=== PATIENT | female | born 1945 | race Caucasian/White ===

== ENCOUNTER → 2021-07-25 14:07 | Outpatient (BNVA) | payer MEDICARE, OTHER, SELFPAY | PROVIDERS: Family Provider Nurse Practitioner Family; PCP Nurse Practitioner Family; Referring Provider Nurse Practitioner Family; Visit Provider Specialist | DX: G89.29 Other chronic pain (principal); M25.511 Pain in right shoulder | CPT/HCPCS: 73030; 99203; 99204 ==

== ENCOUNTER → 2021-11-05 10:18 | Outpatient (BNVA) | payer MEDICARE, OTHER, SELFPAY | PROVIDERS: Family Provider Nurse Practitioner Family; PCP Nurse Practitioner Family; Visit Provider Internal Medicine Cardiovascular Disease | DX: R07.9 Chest pain, unspecified (principal); I71.4 Abdominal aortic aneurysm, without rupture; E78.5 Hyperlipidemia, unspecified; R06.09 Other forms of dyspnea; E03.9 Hypothyroidism, unspecified; F17.200 Nicotine dependence, unspecified, uncomplicated | CPT/HCPCS: 93005; 99204; 99205 ==

== ENCOUNTER 2021-12-26 06:24 | Outpatient (CLI) | payer MEDICARE, OTHER, SELFPAY ==
--- NOTE | 2021-12-26 | ECG_ITS ---
[facility] Test Date: 2021-12-26 Pat Name: Adrianne Najera Department: Room: Gender: Female Pbx Manager: : 1945 Requested By: Kyler Redman Order Number: [id number] Bianca MD: Kyler Redman M.D. Interpretive Statements NAME OF STUDY: LEXISCAN SESTAMIBI STRESS TEST INDICATION: Chest Pain; Shortness of Breath, PROCEDURE: At the baseline, the EKG revealed normal sinus rhythm with a poor R wave progression. Possible old septal WA. The baseline heart was 92 bpm with a blood pressue of 151/87 mm of Hg Lexiscan was infused over a period of 20 seconds. A total of 0.4 milligrams of Lexiscan was infused. The stress phase was continued for a total of 5 minutes. Heart rate at the end of the stress phase was 107 bpm with a blood pressure 133/69 mm of Hg. The EKG at the peak infusion revealed no significant changes. Sestamibi was injected 20 seconds after the Lexiscan infusion. Heart rate at the end of the recovery phase was 105 bpm with a blood pressure of 136/68 mm of Hg. CONCLUSION: 1. No significant EKG changes with the LexiScan infusion 2. No LexiScan induced chest pain or cardiac arrhythmia 3. Normal blood pressure and heart rate response 4. Sestamibi/sestamibi perfusion scan pending; see separate report. Electronically Signed On 12-30-2021 18:13:18 FLOOR FINISHER by Kyler Redman M.D. [id number]
--- NOTE | 2021-12-26 06:36 | NMCV_ITS ---
NM kathy perf SPECT r/s* [id number] Adrianne Najera Age: 76 Gender: F : 1945 Exam Date: 12/26/2021 08:01 Ordering Phys: Kyler Redman MD ([email or web address]) Technologist: TIMOTHY Huang Exam Location: [facility] Indications: CORONARY ANGIOPLASTY STATUS STRESS TEST Please see separate stress test report in [facility]any for full findings IMAGE PROTOCOL Rest/Stress 1 Lexiscan Day Radiopharmaceutical Dose (mCi) Administration Site Administered by Rest: Tc-99m 9.5 IV TIMOTHY Oleary Sestamibi Stress:Tc-99m 31.3 IV TIMOTHY Oleary Sestamibi Rest: 26-Dec-2021 60 Discovery 630 Stress: 26-Dec-2021 30 Discovery 630 0.4mg Lexiscan. Supine position only as patient was unable to lay prone. SPECT RESULTS Technical Quality: Excellent Raw Data Analysis: Normal Image Corrections: No attenuation or motion correction applied Summed Stress Score: 1 Summed Rest Score: 1 Summed Difference Score: 1 PERFUSION FINDINGS A very small area of slightly decreased tracer uptake was noted in the apical anterior and apical septal regions. No significant reversibility was noted in these regions. FUNCTIONAL RESULTS (calculated via Gated SPECT) Stress Image LV EF (%): 62 Stress EDV (mL):66 TID: 1.11 Stress ESV (mL):25 FUNCTIONAL FINDINGS: Segmental wall motion analysis revealing no gross wall motion abnormalities IMPRESSIONS 1. Myocardial perfusion imaging revealing very small areas of persistent decreased tracer uptake apical anterior and LV apex, suggesting myocardial scarring versus attenuation artifact. 2. Normal LV ejection fraction of 62%. 3. LV wall motion analysis revealing no gross wall motion abnormalities. 4. Normal LV volume Low probability for coronary ischemia, based on the above findings. No similar previous studies are available for comparison Dr Kyler Redman MD [facility] (Electronically Signed) Final Date: 26 December 2021 23:19 S
[2021-12-26 06:45] VITALS: BMI 21.9
[2021-12-26] MEDS: regadenoson 0.4 Mg/5 ml Syringe IVP (08:53)
[2021-12-26 09:42] VITALS: BP 136/68; PULSE 98
--- NOTE | 2021-12-26 13:30 | USCV_ITS ---
Adrianne Najera Age: 76 Gender: F : 1945 Exam Date: 12/26/2021 07:18 Ordering Phys: Kyler Redman MD ([email or web address]) Technologist: Alfonzo Luz [place] [facility] [place]: chest pain/ AAA BP: 116 / 64 HR: 87 Rhythm: Sinus Technical Quality: Adequate MEASUREMENTS (Male / Female) Normal Values 2D ECHO LV Diastolic Diameter PLAX 2.1 cm 4.2 - 5.9 / 3.9 - 5.3 cm LV Systolic Diameter PLAX 1.5 cm IVS Diastolic Thickness 0.8 cm 0.6 - 1.0 / 0.6 - 0.9 cm IVS Systolic Thickness 1.0 cm LVPW Diastolic Thickness 1.0 cm 0.6 - 1.0 / 0.6 - 0.9 cm LVPW Systolic Thickness 1.1 cm LVOT Diameter 2.0 cm LV Ejection Fraction 2D Teich 57.7 % LV Ejection Fraction MOD 2C 52.1 % LV Ejection Fraction 2C AL 53.0 % LA Diameter 3.2 cm LA Width 4.1 cm LA Height 2.9 cm RA Width 2.8 cm RA Height 2.9 cm Aorta at Sinotubular Diameter 1.9 cm IVC Diameter 1.3 cm M-MODE Aortic Annulus Diameter 2.7 cm LA Ao Ratio MM 1.2 MV E Point Septal Separation 0.6 cm DOPPLER AV Peak Velocity 109.7 cm/s LVOT Peak Velocity 81.0 cm/s AV Area Cont Eq vti 2.0 cm squared AV Area Cont Eq pk 2.3 cm squared MV Peak Velocity 100.0 cm/s MV Area PHT 5.0 cm squared Mitral E to A Ratio 0.7 MV E' Velocity 30.0 cm/s Mitral E to MV E' Ratio 6.3 Mitral E to LV E' Lateral Ratio 5.4 Mitral E to LV E' Septal Ratio 7.6 TR Peak Velocity 326.7 cm/s TR Peak Gradient 42.7 mmHg TR Mean Velocity 262.0 cm/s TR Mean Gradient 28.5 mmHg TR Velocity Time Integral 82.2 cm Right Atrial Pressure 3.0 mmHg Pulmonary Artery Systolic Pressu 45.7 mmHg PV Peak Velocity 94.0 cm/s RV Acceleration Time 0.1 s RV Ejection Time 0.2 s RV AcT/ET 0.6 FINDINGS Left Ventricle Normal left ventricular size with a borderline low ejection fraction of 52%. Mild diffuse hypokinesia of the anteroseptal segment. Right Ventricle The right ventricle is normal in size and function. Right Atrium The right atrium is normal in size. Left Atrium The left atrium is normal in size. Mitral Valve Thickened mitral valve. Aortic Valve Thickened aortic valve. Tricuspid Valve Mild tricuspid valve regurgitation. Estimated pulmonary artery peak systolic pressure of 46 mmHg Pulmonic Valve Pulmonic valve not well visualized. Pericardium No pericardial effusion. Aorta Normal ascending aorta dimension. IVC Normal inferior vena cava. CONCLUSIONS Normal left ventricular size with a borderline low ejection fraction of 52%. Mild diffuse hypokinesia of the anteroseptal segment. Thickened mitral valve. Thickened aortic valve. Mild tricuspid valve regurgitation. Estimated pulmonary artery peak systolic pressure of 46 mmHg There is no pericardial effusion. No similar previous studies are available for comparison Dr Kyler Redman MD [facility] (Electronically Signed) Final Date: 27 December 2021 17:02 S
== END 2021-12-26 06:25 | disposition home or self-care (01) ==
LOC: CDL 06:28
PROVIDERS: PCP Nurse Practitioner Family; Visit Provider Internal Medicine Cardiovascular Disease
DX: R07.9 Chest pain, unspecified (principal); I71.40 Abdominal aortic aneurysm, without rupture, unspecified; Z98.61 Coronary angioplasty status; I08.3 Combined rheumatic disorders of mitral, aortic and tricuspid valves
CPT/HCPCS: 36415; 78452; 93017; 93306; 96374; A9500; J2785

== ENCOUNTER 2022-01-07 09:38 | Outpatient (CLI) | payer MEDICARE, OTHER, SELFPAY ==
--- NOTE | 2022-01-07 10:00 | CT_ITS ---
WS: [id number] CTA ABDOMEN TECHNIQUE: Noncontrast plus contrast enhanced CTA of the abdominal aorta with coronal and sagittal re formatted images and additional MIP Images. CLINICAL INFORMATION: AAA COMPARISON: None. DLP: 512.[address] scans at [facility] use at least one of these dose optimization techniques: automated e xposure control; mA and/or kV adjustment per patient size (includes targeted exams where dose is matc hed to clinical indication); or iterative reconstruction. FINDINGS: Infrarenal abdominal aortic aneurysm with peripheral mural thrombus. Aneurysm measures approximately 3.8 x 4.3 x 4.4 cm AP by transverse by craniocaudal. Tortuous abdominal aorta. Celiac and SMA are pat ent. Proximal renal arteries are patent. Proximal common iliac arteries are patent with moderate calcification. Emphysematous changes in the l mima bases. Bibasilar atelectasis/fibrosis. Liver appears normal. Prior cholecystectomy. Normal GE mike ction. Adrenal glands are normal. Normal renal parenchymal enhancement. Necrosis. Normal spleen. Lumbar scoliosis. Mild chronic compression superior endplate L2. Mild spondylitic changes lumbar spin e. CT/CT angio abdomen [id number] IMPRESSION: 1. Infrarenal abdominal aortic aneurysm measuring 3.8 x 4.3 x 4.4 cm AP by tra nsverse by craniocaudal. 2. Prior cholecystectomy.
[2022-01-07 10:07] LABS: Blood Urea Nitrogen 13 mg/dL (8-23)
[2022-01-07] MEDS: iohexol 350 mg/mL 100 mL Btl IV (10:23)
== END 2022-01-07 09:39 | disposition home or self-care (01) ==
LOC: RAD 09:39
PROVIDERS: PCP Nurse Practitioner Family; Visit Provider Internal Medicine Cardiovascular Disease
DX: Z01.812 Encounter for preprocedural laboratory examination (principal); I71.43 Infrarenal abdominal aortic aneurysm, without rupture; Z90.49 Acquired absence of other specified parts of digestive tract
CPT/HCPCS: 74175; 82565; 84520; Q9967

== ENCOUNTER → 2022-04-16 09:26 | Outpatient (BNVA) | payer MEDICARE, OTHER, SELFPAY | PROVIDERS: PCP Nurse Practitioner Family; Visit Provider Internal Medicine Cardiovascular Disease | DX: I71.40 Abdominal aortic aneurysm, without rupture, unspecified (principal); R06.09 Other forms of dyspnea; E78.5 Hyperlipidemia, unspecified; R03.0 Elevated blood-pressure reading, without diagnosis of hypertension; Z87.898 Personal history of other specified conditions; F17.200 Nicotine dependence, unspecified, uncomplicated | CPT/HCPCS: 99215 ==

== ENCOUNTER 2022-07-09 10:35 | Outpatient (CLI) | payer MEDICARE, OTHER, SELFPAY ==
--- NOTE | 2022-07-09 11:15 | USCV_ITS ---
Adrianne Najera Age: 77 Gender: F : 1945 Exam Date: 07/09/2022 10:58 Ordering Phys: Kyler Redman MD ([email or web address]) Technologist: Horacio Rankin [place] [facility] [place]: aaa HISTORY: Diameter (cm) AP x Transverse x Length Velocity (cm/s) Waveform Prox Aorta: 2.42 x 2.87 x 92.90 Biphasic Mid Aorta: 2.29 x 2.68 x 72.70 Biphasic Distal Aorta: 3.48 x 3.70 x 35.40 Biphasic Right Iliac Prox: 1.35 x 1.31 x 69.40 Biphasic Left Iliac Prox: 1.09 x 1.35 x 48.80 Biphasic Stent Prox Landing x x Aneurysmal Sac Max x x Lt Lat Sac Dim Rt Lat Sac Dim Stent Dist Landing x x Right Iliac Stent x x Left Iliac Stent x x Right Renal Art Left Renal Art FINDINGS: Comparison: none available. A fusiform abdominal aortic aneurysm is noted with a maximal diameter of 3.7 cm. Diffuse atherosclerotic plaque with no aortic obstruction. There is evidence of atherosclerotic plaque no significan stenosis in the right common iliac artery. There is evidence of atherosclerotic plaque no significan stenosis in the left common iliac artery. CONCLUSIONS AAA , maximum diameter of 3.[address] Adore Laguna DO (Electronically Signed) Final Date: 09 Jul 2022 15:54 S
== END 2022-07-09 10:36 | disposition home or self-care (01) ==
LOC: RAD 10:39
PROVIDERS: PCP Nurse Practitioner Family; Visit Provider Internal Medicine Cardiovascular Disease
DX: I71.40 Abdominal aortic aneurysm, without rupture, unspecified (principal); I70.0 Atherosclerosis of aorta; I70.8 Atherosclerosis of other arteries
CPT/HCPCS: 93978

== ENCOUNTER → 2022-08-12 08:30 | Outpatient (BNVA) | payer MEDICARE, OTHER, SELFPAY | PROVIDERS: PCP Nurse Practitioner Family; Visit Provider Internal Medicine Pulmonary Disease | DX: J43.9 Emphysema, unspecified (principal); F17.210 Nicotine dependence, cigarettes, uncomplicated; Z99.81 Dependence on supplemental oxygen; I08.2 Rheumatic disorders of both aortic and tricuspid valves | CPT/HCPCS: 99204 ==

== ENCOUNTER 2022-08-27 11:39 | Outpatient (CLI) | payer MEDICARE, OTHER, SELFPAY ==
--- NOTE | 2022-08-27 12:15 | CT_ITS ---
WS: [id number] LDCT LUNG CANCER SCREENING TECHNIQUE: Noncontrast CT of the chest with coronal and sagittal reformatted images. CLINICAL INFORMATION: Cancer screen ORDER DATE: 08/27/2022 12:09 PM COMPARISON: Noncontrast CT performed 11/03/2017 DLP: 41.01 mGy.cm DIvol: Mean CTDIvol: 0.60 (mGy) All CT scans at [facility] use at least one of these dose optimization techniques: automated e xposure control; mA and/or kV adjustment per patient size (includes targeted exams where dose is matc hed to clinical indication); or iterative reconstruction. FINDINGS: The lungs are hyperinflated and clear. Advanced changes of central lobar emphysema and fibrous scarri ng throughout both lungs. No suspicious pulmonary mass or nodule. No pleural effusion. The trachea an d mainstem bronchi are patent. There appears to be some mucus in the left mainstem bronchus. No media stinal or hilar adenopathy. The thoracic aorta is normal in caliber. Main pulmonary arteries are mild ly prominent. Coronary artery atherosclerosis. No pericardial effusion. Limited images of the upper a bdomen are unremarkable. Osseous structures show marked osteopenia. No fracture or bone destruction i dentified. CT/CT lung screening [id number] IMPRESSION: 1. Advanced changes of central lobar emphysema and fibrous scarring in both keyona gs. 2. No suspicious pulmonary mass or nodule. No significant lymphadenopathy in th e chest. LUNG-RADS: 1-Negative FOLLOW UP: 12 Month: Continue annual screening with LDCT
== END 2022-08-27 11:40 | disposition home or self-care (01) ==
PROVIDERS: PCP Nurse Practitioner Family; Visit Provider Internal Medicine Pulmonary Disease
DX: Z12.2 Encounter for screening for malignant neoplasm of respiratory organs (principal); F17.210 Nicotine dependence, cigarettes, uncomplicated
CPT/HCPCS: 71271

== ENCOUNTER 2022-09-03 13:10 | Outpatient (CLI) | payer MEDICARE, OTHER, SELFPAY | END 2022-09-03 13:11 | disposition home or self-care (01) | PROVIDERS: PCP Nurse Practitioner Family; Visit Provider Internal Medicine Pulmonary Disease | DX: R06.02 Shortness of breath (principal); F17.210 Nicotine dependence, cigarettes, uncomplicated; R94.2 Abnormal results of pulmonary function studies | CPT/HCPCS: 94010; 94726; 94729 ==

== ENCOUNTER → 2022-10-23 09:15 | Outpatient (BNVA) | payer MEDICARE, OTHER, SELFPAY | PROVIDERS: PCP Nurse Practitioner Family; Visit Provider Internal Medicine Cardiovascular Disease | DX: R10.13 Epigastric pain (principal); E78.5 Hyperlipidemia, unspecified; J44.9 Chronic obstructive pulmonary disease, unspecified; F17.200 Nicotine dependence, unspecified, uncomplicated; R60.0 Localized edema; I10 Essential (primary) hypertension; R07.9 Chest pain, unspecified; R06.02 Shortness of breath; Z79.01 Long term (current) use of anticoagulants; E03.9 Hypothyroidism, unspecified; I71.40 Abdominal aortic aneurysm, without rupture, unspecified | CPT/HCPCS: 36415; 80048; 83880; 85025; 93005; 99214 ==

== ENCOUNTER → 2022-11-15 11:15 | Outpatient (BNVA) | payer MEDICARE, OTHER, SELFPAY | PROVIDERS: PCP Nurse Practitioner Family; Visit Provider Internal Medicine Pulmonary Disease | DX: J44.9 Chronic obstructive pulmonary disease, unspecified (principal); Z12.2 Encounter for screening for malignant neoplasm of respiratory organs; F17.210 Nicotine dependence, cigarettes, uncomplicated; I35.1 Nonrheumatic aortic (valve) insufficiency | CPT/HCPCS: 99214 ==

== ENCOUNTER 2022-12-13 12:53 | Outpatient (CLI) | payer MEDICARE, OTHER, SELFPAY ==
[2022-12-13] MEDS: iohexol 350 mg/mL 500 mL Btl (per mL) IV (13:27)
--- NOTE | 2022-12-13 13:30 | CTR_ITS ---
PROCEDURE INFORMATION: Exam: CTA Abdomen and Pelvis With Contrast Exam date and time: 12/13/2022 1:23 PM Age: 77 years old Clinical indication: Condition or disease; Other: Aaa; Arterial aneurysm; Without rupture; Abdominal; Additional info: Aaa, to be done in dec 2022 TECHNIQUE: Imaging protocol: Computed tomographic angiography of the abdomen and pelvis with contrast. Exam focused on the arteries. 3D rendering (Not supervised by radiologist): MIP and/or 3D reconstructed images were created by the technologist. Radiation optimization: All CT scans at this facility use at least one of these dose optimization techniques: automated exposure control; mA and/or kV adjustment per patient size (includes targeted exams where dose is matched to clinical indication); or iterative reconstruction. Contrast material: OMNI 350; Contrast volume: 100 ml; Contrast route: INTRAVENOUS (IV); REPORTING DATA: Count of CT and Cardiac NM exams in prior 12 months: This patient has received 3 known CTs and 0 known cardiac nuclear medicine studies in the 12 months prior to the current study. COMPARISON: CT angio abdomen [id number] 01/07/2022 10:12 AM RADIATION DOSE METRICS: Total DLP (mGy-cm): 253.47 FINDINGS: Lungs: Centrilobular emphysema noted. Aorta: Abdominal aorta is diffusely atherosclerotic, with diffuse aneurysmal dilatation. The largest portion of the aorta is seen below the renal arteries, measuring 4.0 cm AP x 4.2 cm transverse x 5.4 cm craniocaudal. No leak or rupture of the aorta noted. Celiac trunk and mesenteric arteries: Atherosclerotic calcifications. No occlusion or significant stenosis. Renal arteries: Atherosclerotic calcifications. No occlusion or significant stenosis. Right iliac arteries: Right iliac arteries are atherosclerotic. Common iliac artery measures 1.5 cm in diameter. Left iliac arteries: Left iliac arteries are atherosclerotic. Left common iliac artery measures 1.0 cm in diameter. Liver: Calcified granulomas are seen in the liver. No acute hepatic abnormality. Gallbladder and bile ducts: The gallbladder is surgically absent. No biliary dilatation. Pancreas: Unremarkable. No mass. No ductal dilation. Spleen: Unremarkable. No splenomegaly. Adrenal glands: Unremarkable. No mass. Kidneys and ureters: Unremarkable. No solid mass. No hydronephrosis. Stomach and bowel: No acute gastric abnormality demonstrated. The small bowel is unremarkable as demonstrated. No acute abnormality/inflammatory change of the colon. Appendix: No evidence of appendicitis. Intraperitoneal space: Unremarkable. No free air. No significant fluid collection. Lymph nodes: Unremarkable. No enlarged lymph nodes. Urinary bladder: Unremarkable. No mass. Reproductive: The uterus is not visualized, consistent with hysterectomy. Bones/joints: Degenerative lumbar spine changes. No acute fracture. Soft tissues: Unremarkable. CT/CT angio abdomen pelvis [id number] IMPRESSION: Diffusely atherosclerotic abdominal aorta with aneurysmal dilatation. Infrarenal aneurysm noted measuring 4.0 cm AP x 4.2 cm transverse x 5.4 cm craniocaudal. This aneurysm is not significantly changed in size when compared to CTA abdomen pelvis dated 01/07/2022. Follow-up imaging in 1 year is recommended.
== END 2022-12-13 12:54 | disposition home or self-care (01) ==
LOC: RAD 12:53
PROVIDERS: PCP Nurse Practitioner Family; Visit Provider Internal Medicine Cardiovascular Disease
DX: I71.40 Abdominal aortic aneurysm, without rupture, unspecified (principal)
CPT/HCPCS: 74174; Q9967

== ENCOUNTER 2023-03-07 10:48 | Outpatient (CLI) | payer MEDICARE, OTHER, SELFPAY ==
--- NOTE | 2023-03-07 11:02 | MR_ITS ---
WS: [id number] MRI RIGHT ANKLE WITH AND WITHOUT CONTRAST. COMPARISON: None Multiplanar, multisequence imaging is performed with and without contrast. No marrow edema or fracture. No enhancement within the bones. The Achilles tendon is normal. Focal osteochondral lesion involving the medial talar dome measures 7 x 3 mm. No loose body. No addit ional osteochondral lesions. No loose body or joint effusion. Normal calcaneus. The peroneal brevis tendon sheath is normal. The extensor and flexor tendons are normal. No increased fluid in the sheath and the tendons are intact and normal size. Anterior talofibular ligament is nor mal. Deltoid ligament is normal. No soft tissue ulcer is identified on this examination. There is no focal area of abnormal enhancemen t. IMPRESSION: 1. No marrow edema or osteomyelitis. 2. Osteochondral defect along the medial talar dome measures 7 x 3 mm. No loose body. 3. No tendon or ligament injury. 4. No soft tissue ulcer.
--- NOTE | 2023-03-07 11:02 | USCV_ITS ---
Adrianne Najera Age: 78 Gender: F : 1945 Exam Date: 03/07/2023 11:19 Ordering Phys: Anat Weinstein APRN, APRN Technologist: LILIA Exam Location[place] [facility] [place]ication: PVD Risk Factors: Previous Vascular Surgery: RIGHT LEFT BP: 149.0 / 84.00 BP: 139.0/ 66.00 0 0 Waveform Velocity (cm/s) Velocity (cm/s) Waveform Triphasic 84.9 Iliac Prox 68.2 Triphasic Triphasic 72.3 Iliac Mid 74.0 Triphasic Triphasic 85.6 Iliac Distal 96.4 Triphasic Triphasic 97.6 TRUST MAIL CLERK 104.1 Triphasic Triphasic 68.4 SFA Prox 92.4 Triphasic Triphasic 76.9 SFA Mid 91.6 Triphasic Triphasic SFA Dist Triphasic 99.2 63.2 Biphasic 45.6 POP 47.7 Triphasic Biphasic 63.5 INSTRUCTIONAL DESIGNER 49.6 Monophasic Biphasic 48.8 DPA N/A ALLY 0.8 FINDINGS Noncompressible ankle vessels on the right side No Doppler flow signals in the left DPA Resting ALLY of 0.8 on the left side Mild to moderate plaques in the iliac and femoral arteries bilaterally CONCLUSIONS 1. Abnormal resting ALLY on the left side, suggesting mild peripheral artery disease. 2. Possible occlusion of the dorsalis pedis artery on the left side 3. Noncompressible ankle vessels on the right side suggestive of arterial sclerosis No similar previous studies are available for comparison Dr Kyler Redman MD [facility] (Electronically Signed) Final Date: 07 March 2023 18:20 S
[2023-03-07] MEDS: gadobenate dimeglumine 20 mL vial IV (12:59)
== END 2023-03-07 10:49 | disposition home or self-care (01) ==
LOC: RAD 10:49
PROVIDERS: PCP Nurse Practitioner Family; Visit Provider Nurse Practitioner Family
DX: I73.9 Peripheral vascular disease, unspecified (principal); L97.319 Non-pressure chronic ulcer of right ankle with unspecified severity; R93.6 Abnormal findings on diagnostic imaging of limbs
CPT/HCPCS: 73723; 93925; A9577

== ENCOUNTER → 2023-03-24 15:39 | Outpatient (BNVA) | payer MEDICARE, OTHER, SELFPAY | PROVIDERS: PCP Nurse Practitioner Family; Visit Provider Internal Medicine Pulmonary Disease | DX: R06.02 Shortness of breath (principal); F17.210 Nicotine dependence, cigarettes, uncomplicated; J44.9 Chronic obstructive pulmonary disease, unspecified; F17.200 Nicotine dependence, unspecified, uncomplicated; R06.09 Other forms of dyspnea; Z12.2 Encounter for screening for malignant neoplasm of respiratory organs | CPT/HCPCS: 71046; 99214 ==

== ENCOUNTER → 2023-04-22 13:17 | Outpatient (BNVA) | payer MEDICARE, OTHER, SELFPAY | PROVIDERS: PCP Nurse Practitioner Family; Visit Provider Internal Medicine Pulmonary Disease | DX: J43.2 Centrilobular emphysema (principal); R06.09 Other forms of dyspnea; Z12.2 Encounter for screening for malignant neoplasm of respiratory organs; F17.210 Nicotine dependence, cigarettes, uncomplicated; J44.9 Chronic obstructive pulmonary disease, unspecified | CPT/HCPCS: 99214 ==

== ENCOUNTER → 2023-04-28 14:50 | Outpatient (BNVA) | payer MEDICARE, OTHER, SELFPAY | PROVIDERS: PCP Nurse Practitioner Family; Referring Provider Nurse Practitioner Family; Visit Provider Thoracic Surgery (Cardiothoracic Vascular Surgery) | DX: I73.9 Peripheral vascular disease, unspecified (principal); L97.319 Non-pressure chronic ulcer of right ankle with unspecified severity; Z87.891 Personal history of nicotine dependence | CPT/HCPCS: 99203 ==

== ENCOUNTER → 2023-05-02 10:03 | Outpatient (BNVA) | payer MEDICARE, OTHER, SELFPAY | PROVIDERS: PCP Nurse Practitioner Family; Visit Provider Thoracic Surgery (Cardiothoracic Vascular Surgery) | DX: L97.311 Non-pressure chronic ulcer of right ankle limited to breakdown of skin (principal) | CPT/HCPCS: 97597; 99213; A6212 ==

== ENCOUNTER → 2023-05-09 09:48 | Outpatient (BNVA) | payer MEDICARE, OTHER, SELFPAY | PROVIDERS: PCP Nurse Practitioner Family; Visit Provider Thoracic Surgery (Cardiothoracic Vascular Surgery) | DX: I96 Gangrene, not elsewhere classified (principal); L97.311 Non-pressure chronic ulcer of right ankle limited to breakdown of skin; S51.011A Laceration without foreign body of right elbow, initial encounter; W18.11XA Fall from or off toilet without subsequent striking against object, initial encounter | CPT/HCPCS: 97597; A6021; A6212 ==

== ENCOUNTER → 2023-05-23 09:55 | Outpatient (BNVA) | payer MEDICARE, OTHER, SELFPAY | PROVIDERS: PCP Nurse Practitioner Family; Visit Provider Thoracic Surgery (Cardiothoracic Vascular Surgery) | DX: I96 Gangrene, not elsewhere classified (principal); L97.311 Non-pressure chronic ulcer of right ankle limited to breakdown of skin; Z09 Encounter for follow-up examination after completed treatment for conditions other than malignant neoplasm | CPT/HCPCS: 97597 ==

== ENCOUNTER → 2023-06-06 10:02 | Outpatient (BNVA) | payer MEDICARE, OTHER, SELFPAY | PROVIDERS: PCP Nurse Practitioner Family; Visit Provider Thoracic Surgery (Cardiothoracic Vascular Surgery) | DX: I73.9 Peripheral vascular disease, unspecified (principal); L97.311 Non-pressure chronic ulcer of right ankle limited to breakdown of skin | CPT/HCPCS: 97597; A6237; A6250 ==

== ENCOUNTER → 2023-07-02 15:47 | Outpatient (BNVA) | payer MEDICARE, OTHER, SELFPAY | PROVIDERS: PCP Nurse Practitioner Family; Visit Provider Thoracic Surgery (Cardiothoracic Vascular Surgery) | DX: I73.9 Peripheral vascular disease, unspecified (principal); L97.311 Non-pressure chronic ulcer of right ankle limited to breakdown of skin | CPT/HCPCS: 97597 ==

== ENCOUNTER 2023-07-25 19:53 | Emergency (ER) | payer MEDICARE, OTHER, SELFPAY ==
[2023-07-25 20:02] VITALS: BP 167/81; PULSE 95; RESP 18; TEMP 36.7; O2SAT 92
--- NOTE | 2023-07-25 20:05 | ECG_ITS ---
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 Measurements Intervals [place] Rate: 99 P: 84 LA: 160 QRS: 87 QRSD: 82 T: 74 QT: 344 QTc: 441 Interpretive Statements SINUS RHYTHM POSSIBLE LEFT ATRIAL ENLARGEMENT [-0.1mV P-WAVE IN V1/V2] Compared to ECG 10/23/2022 10:59:00 No significant changes Electronically Signed On 07-26-2023 21:38:15 CDT by Enrrique Orta M.D. [id number]
[2023-07-25 20:44] LABS: Basophils % 0.3 %; Eosinophils # 0.1 10^3/uL (0.0-0.8); Eosinophils % 0.7 %; Hematocrit 38.2 % (36-47); Lymphocytes # 2.1 10^3/uL (0.8-4.8); Lymphocytes % 13.2 %; Mean Corpuscular HGB Conc 31.4 g/dL (30-55); Mean Corpuscular Hemoglobin 28.6 pg (27-33); Mean Platelet Volume 9.1 fL (7.4-10.4); Monocytes # 1.2 10^3/uL (0.2-0.9); Neutrophils # 12.05 10^3/uL (1.8-7.7); Neutrophils % 77.3 %; Nucleated Red Blood Cells % 0 %; Platelet Count 344 10^3/cmm (157-399); Red Cell Distribution Width 14.4 % (12.1-15.1); White Blood Count 15.58 10^3/uL (3.29-11.43)
[2023-07-25 21:04] LABS: Alanine Aminotransferase 8 U/L (0-33); Albumin Level 4.1 g/dL (3.5-5.2); Alkaline Phosphatase 134 U/L (35-105); Anion Gap 15.8 (5-19); Aspartate Amino Transferase 12 U/L (0-32); Blood Urea Nitrogen 31 mg/dL (8-23); Calcium 9.3 mg/dL (8.5-10.5); Carbon Dioxide 28 mmol/L (22-29); Chloride 101 mmol/L (98-107); Creatinine Clr Calc Pharmacy 56.6935; Globulin 3.3 g/dL (1.3-4.6); Glucose 112 mg/dL (65-115); Magnesium 2.1 mg/dL (1.7-2.3); Osmolality Calculated 297 mOsm/kg (285-295); Potassium 4.8 mmol/L (3.5-5.1); Sodium 140 mmol/L (136-145); Total Bilirubin 0.4 mg/dL (0.15-1.2); Total Protein 7.4 g/dL (6.6-8.7)
--- NOTE | 2023-07-25 21:04 | W.ED.BACK ---
HPI - Back Pain/Injury General: Chief Complaint: Back Pain/Injury Stated Complaint: Muscle Spams Time Seen by Provider: 07/25/23 20:58 History of Present Illness: Patient is having issues with thoracic back spasms for couple weeks now. She is been on multiple medications. She had a shot of Toradol in clinic today. She had been on Soma and hydrocodone and a muscle relaxer. No this is helping. She is crying on presentation. No saddle numbness, no urinary retention or incontinence, no focal motor deficit, no sensory deficit. no recent fever. no cough. no shortness of breath. no chest pain. no abdominal pain. no nausea or vomiting. no dysuria. no altered mental status. no edema. Review of Systems Narrative: Constitutional symptoms: Negative except as documented in HPI. Skin symptoms: Negative except as documented in HPI. Eye symptoms: Negative except as documented in HPI. ENMT symptoms: Negative except as documented in HPI. Respiratory symptoms: Negative except as documented in HPI. Cardiovascular symptoms: Negative except as documented in HPI. Gastrointestinal symptoms: Negative except as documented in HPI. Genitourinary symptoms: Negative except as documented in HPI. Musculoskeletal symptoms: Negative except as documented in HPI. Neurologic symptoms: Negative except as documented in HPI. Psychiatric symptoms: Negative except as documented in HPI. Endocrine symptoms: Negative except as documented in HPI. PFS ED PFSH: Medical History COPD (chronic obstructive pulmonary disease) AAA (abdominal aortic aneurysm) Chest pain Hyperlipidemia Family History Mother CAD (coronary artery disease) Diabetes Father CAD (coronary artery disease) Family/Other CAD (coronary artery disease) Cancer Sister Chronic kidney disease (CKD) Denies family history of Clotting disorder Dementia Suicide Anesthesia complication Bleeding disorder Lung disease Stroke Social History Smoking and tobacco/nicotine status: former use of tobacco/nicotine Quit status (tobacco/nicotine): has quit using Year quit tobacco: 2022 Alcohol intake: never Substance/Drug Use: never Physical Exam Narrative: EXAM NARRATIVE: General: Alert, no acute distress. Head: Normocephalic Neck: Trachea midline Eye: Extraocular movements are intact. Ears, nose, mouth and throat: Oral mucosa moist Respiratory: Respirations are non-labored Musculoskeletal: Normal ROM Back: no step off, no focal tenderness, some paraspinal muscle tenderness Neurological: Alert and oriented to person, place, time, and situation, No focal neurological deficit observed. Psychiatric: Cooperative, appropriate mood & affect. Course Vital Signs: Vital signs: Vital Signs Temperature 98.0 F 07/25/23 20:02 Pulse Rate 95 07/25/23 20:02 Respiratory Rate 18 07/25/23 20:02 Blood Pressure 167/81 07/25/23 20:02 Pulse Oximetry 92 07/25/23 20:02 Oxygen Delivery Me thod Nasal Cannula 07/25/23 20:02 Oxygen Flow Rate 2 07/25/23 20:02 MDM - Back Pain/Injury Medical Decision Making Assessment and plan: Back pain. -IV Dilaudid, Norflex and Decadron. I will start her on some prednisone and put her on oxycodone for a few days. - Discharged home - Discussed plan with patient. Answered any questions. - Evaluation and treatment of this problem were appropriate in the emergency setting. Labs 07/25/23 20:36 07/25/23 20:36 Laboratory Results WBC 15.58 10^3/uL (3.29-11.43) H 07/25/23 20:36 RBC 4.20 10^6/uL (3.85-5.65) 07/25/23 20:36 Hgb 12.00 g/dL (11.27-16.99) 07/25/23 20:36 Hct 38.2 % (36-47) 07/25/23 20:36 MCV 91.0 fl (85-98) 07/25/23 20:36 MCH 28.6 pg (27-33) 07/25/23 20:36 MCHC 31.4 g/dL (30-55) 07/25/23 20:36 RDW 14.4 % (12.1-15.1) 07/25/23 20:36 Plt Count 344 10^3/cmm (157-399) 07/25/23 20:36 MPV 9.1 fL (7.4-10.4) 07/25/23 20:36 Neut % (Auto) 77.3 % 07/25/23 20:36 Lymph % (Auto) 13.2 % 07/25/23 20:36 [place] % (Auto) 8.0 % 07/25/23 20:36 Eos % (Auto) 0.7 % 07/25/23 20:36 Baso % (Auto) 0.3 % 07/25/23 20:36 Neut # (Auto) 12.05 10^3/uL (1.8-7.7) H 07/25/23 20:36 Lymph # (Auto) 2.1 10^3/uL (0.8-4.8) 07/25/23 20:36 [place] # (Auto) 1.2 10^3/uL (0.2-0.9) H 07/25/23 20:36 Eos # (Auto) 0.1 10^3/uL (0.0-0.8) 07/25/23 20:36 Baso # (Auto) 0.0 10^3/uL (0.0-0.1) 07/25/23 20:36 Nucleated RBC % (auto) 0 % 07/25/23 20:36 Nucleated RBCs # 0.0 /100WBC 07/25/23 20:36 Sodium 140 mmol/L (136-145) 07/25/23 20:36 Potassium 4.8 mmol/L (3.5-5.1) 07/25/23 20:36 Chloride 101 mmol/L (98-107) 07/25/23 20:36 Carbon Dioxide 28 mmol/L (22-29) 07/25/23 20:36 Anion Gap 15.8 (5-19) 07/25/23 20:36 Creatinine 0.6 mg/dL (0.5-0.9) 07/25/23 20:36 GFR Calculation Not Reportable 07/25/23 20:36 Glucose 112 mg/dL (65-115) 07/25/23 20:36 Calcium 9.3 mg/dL (8.5-10.5) 07/25/23 20:36 Magnesium 2.1 mg/dL (1.7-2.3) 07/25/23 20:36 Total Bilirubin 0.4 mg/dL (0.15-1.2) 07/25/23 20:36 AST 12 U/L (0-32) 07/25/23 20:36 ALT 8 U/L (0-33) 07/25/23 20:36 Total Protein 7.4 g/dL (6.6-8.7) 07/25/23 20:36 Albumin 4.1 g/dL (3.5-5.2) 07/25/23 20:36 Globulin 3.3 g/dL (1.3-4.6) 07/25/23 20:36 No radiology studies performed this visit Discharge Plan Discharge Patient Disposition: Home Clinical Impression: Thoracic back pain Qualifiers: Chronicity: acute Back pain laterality: unspecified Qualified Code(s): M54.6 - Pain in thoracic spine Condition: Stable Prescriptions: New prednisone 20 mg tablet 60 mg PO DAILY Qty: 20 0RF Rx Instructions: 3 tabs (60 mg) x 3 days. 2 tabs (40 mg) x 3 days. 1 tab (20 mg) x 3 days. 1/2 tab (10 mg) x 4 days oxycodone 5 mg tablet 5 mg PO Q8H PRN (Reason: pain) Qty: 20 0RF No Action metoprolol tartrate 25 mg tablet 12.5 mg PO BID Qty: 30 0RF albuterol sulfate 2.5 mg /3 mL (0.083 %) solution for nebulization 2.5 mg inhalation Q4H PRN aspirin 81 mg tablet,delayed release (DR/EC) 81 mg PO DAILY Breztri Aerosphere 160-9-4.8 mcg/actuation HFA aerosol inhaler 2 inh inhalation BID dexamethasone 1 mg tablet 1 mg PO DAILY furosemide 20 mg tablet 20 mg PO BID simvastatin 20 mg tablet 20 mg PO DAILY (DME) acapella See Rx Instructions .Route .MEDSUPPLY Qty: 1 0RF Rx Instructions: As directed doxycycline hyclate 100 mg capsule 100 mg PO BID Qty: 10 0RF amitriptyline 25 mg tablet 25 mg PO DAILY roflumilast 500 mcg tablet 500 mcg PO DAILY alendronate 70 mg tablet PO .once weekly levothyroxine 150 mcg capsule 75 mcg PO DAILY pentoxifylline 400 mg tablet extended release 400 mg PO TID Qty: 270 2RF Rx Instructions: must administer with a meal/food pentoxifylline 400 mg tablet extended release 400 mg PO TID Qty: 60 0RF Rx Instructions: must administer with a meal/food Discharge Orders: Discharge ED (Routine); Ordered 07/25/23 Ordered By: Santa Ribera Referrals: Anat Weinstein APRN [Primary Care Provider] - Discharge Diet: Usual diet Discharge Activity: Increase activity as tolerated Patient Instructions: Opioid Safety, Pain Management Activity Restrictions/Additional Instructions: Thank you for choosing [facility] for your healthcare needs today. Please realize this is an emergency room and that we are providing you with a medical screening exam and this may not be complete and all inclusive of all the testing and or work up that you may need to determine your ailment or severity of your illness. You have been screened and evaluated and felt safe for discharge. Health conditions do change or evolve sometimes and as such it is important that you follow up with your Primary Doctor to be re checked, 3-5 days is a general good time frame for follow up. You are always welcome to return to the ED for re assessment if your symptoms are worsening or you have new concerns Coding Level of Care Code ED Supervisory Forester for Cory Santana
[2023-07-25] MEDS: ondansetron 2 mg/ML SDV 2 mL 4 MG IVP (21:16)
[2023-07-25] MEDS: HYDROmorphone 1 mg/mL INJ 1 mL IVP (21:18)
[2023-07-25] MEDS: orphenadrine 30 mg/mL Inj 2 mL 60 MG IVP (21:18)
[2023-07-25] MEDS: dexamethasone 10 mg/mL INJ IVP (21:21)
[2023-07-25 22:04] VITALS: BP 148/83; PULSE 87; RESP 16; TEMP 36.7; O2SAT 93
== END 2023-07-25 21:43 | disposition home or self-care (01) ==
PROVIDERS: Physician Assistant; Emergency Provider Emergency Medicine; PCP Nurse Practitioner Family
DX: M54.6 Pain in thoracic spine (principal); Z79.82 Long term (current) use of aspirin; Z87.891 Personal history of nicotine dependence; J44.9 Chronic obstructive pulmonary disease, unspecified; E78.5 Hyperlipidemia, unspecified
CPT/HCPCS: 36415; 80053; 83735; 85025; 93005; 96374; 96375; 99284; J1100; J1170; J2360; J2405

== ENCOUNTER 2023-08-29 10:39 | Outpatient (CLI) | payer MEDICARE, OTHER, SELFPAY ==
--- NOTE | 2023-08-29 11:00 | CT_ITS ---
WS: [id number] LDCT LUNG CANCER SCREENING TECHNIQUE: Noncontrast CT of the chest with coronal and sagittal reformatted images. CLINICAL INFORMATION: Cancer Screen COMPARISON: None. DLP: 64.70 mGy.cm DIvol: Mean CTDIvol: 1.10 (mGy) All CT scans at [facility] use at least one of these dose optimization techniques: automat ed exposure control; mA and/or kV adjustment per patient size (includes targeted exams where dose is matched to clinical indication); or iterative reconstruction. FINDINGS: Advanced emphysema and pleural parenchymal scarring throughout both lungs. Fibrosis lung apices and R ight middle lobe. No new suspicious pulmonary mass or nodule. Normal caliber thoracic aorta. Coronary calcification. No mediastinal or hilar lymphadenopathy. C holecystectomy. Biconcave compression fracture thoracic spine T6 new from previous with loss of 60-70 % height. Mild compression T2 superior endplate also new CT/CT lung screening [id number] IMPRESSION: ] Biconcave compression fracture thoracic spine T6 new from previous with loss of 60-70% height. Mild compression T2 superior endplate also new LUNG-RADS: 2S-Benign Appearance or Behavior with Significant Findings FOLLOW UP: 12 Month: Continue annual screening with LDCT
== END 2023-08-29 10:40 | disposition home or self-care (01) ==
LOC: RAD 10:40
PROVIDERS: PCP Nurse Practitioner Family; Visit Provider Internal Medicine Pulmonary Disease
DX: Z12.2 Encounter for screening for malignant neoplasm of respiratory organs (principal); Z72.0 Tobacco use; J43.9 Emphysema, unspecified; J98.4 Other disorders of lung; J84.10 Pulmonary fibrosis, unspecified; Z90.49 Acquired absence of other specified parts of digestive tract; S22.059A Unspecified fracture of T5-T6 vertebra, initial encounter for closed fracture; X58.XXXA Exposure to other specified factors, initial encounter
CPT/HCPCS: 71271

== ENCOUNTER → 2023-09-02 10:05 | Outpatient (BNVA) | payer MEDICARE, OTHER, SELFPAY | PROVIDERS: PCP Nurse Practitioner Family; Visit Provider Internal Medicine Critical Care Medicine | DX: J96.11 Chronic respiratory failure with hypoxia (principal); Z99.81 Dependence on supplemental oxygen; J44.9 Chronic obstructive pulmonary disease, unspecified; I27.20 Pulmonary hypertension, unspecified; S22.050D Wedge compression fracture of T5-T6 vertebra, subsequent encounter for fracture with routine healing; M81.8 Other osteoporosis without current pathological fracture; F17.201 Nicotine dependence, unspecified, in remission; X58.XXXD Exposure to other specified factors, subsequent encounter | CPT/HCPCS: 99214 ==

== ENCOUNTER → 2023-09-03 15:30 | Outpatient (BNVA) | payer MEDICARE, OTHER, SELFPAY | PROVIDERS: PCP Nurse Practitioner Family; Visit Provider Internal Medicine Cardiovascular Disease | DX: I71.43 Infrarenal abdominal aortic aneurysm, without rupture (principal); E78.2 Mixed hyperlipidemia; I10 Essential (primary) hypertension; I73.9 Peripheral vascular disease, unspecified; L97.319 Non-pressure chronic ulcer of right ankle with unspecified severity; Z87.891 Personal history of nicotine dependence | CPT/HCPCS: 99214 ==

== ENCOUNTER → 2023-09-25 10:49 | Outpatient (BNVA) | payer MEDICARE, OTHER, SELFPAY | PROVIDERS: PCP Nurse Practitioner Family; Visit Provider Podiatrist Foot & Ankle Surgery | DX: I87.2 Venous insufficiency (chronic) (peripheral); I73.9 Peripheral vascular disease, unspecified; R60.0 Localized edema; L60.3 Nail dystrophy; L97.311 Non-pressure chronic ulcer of right ankle limited to breakdown of skin | CPT/HCPCS: 99203 ==

== ENCOUNTER 2023-12-18 07:24 | Outpatient (CLI) | payer MEDICARE, OTHER, SELFPAY ==
--- NOTE | 2023-12-18 07:45 | USCV_ITS ---
Najera Adrianne Age: 78 Gender: F : 1945 Exam Date: 12/18/2023 07:42 Ordering Phys: Kyler Redman MD ([email or web address]) Technologist: Manny Rios Exam Location: [facility] [place] Indication: AAA HISTORY: Diameter (cm) AP x Transverse x Length Velocity (cm/s) Waveform Prox Aorta: 2.50 x 1.90 x 97.60 Triphasic Mid Aorta: 2.50 x 2.30 x 73.40 Triphasic Distal Aorta: 4.70 x 4.10 x 6.20 22.70 Triphasic Right Iliac Prox: 0.93 x 1.19 x 44.80 Triphasic Left Iliac Prox: 1.25 x 1.36 x 52.20 Triphasic Stent Prox Landing x x Aneurysmal Sac Max x x Lt Lat Sac Dim Rt Lat Sac Dim Stent Dist Landing x x Right Iliac Stent x x Left Iliac Stent x x Right Renal Art Left Renal Art FINDINGS: Technically difficult study CONCLUSIONS Fusiform distal AAA 4.7 x 4.1 x 6.2cm Ap x trans xcc progressed since 2022 Normal visualized iliac arteries Chacho Davis MD (Electronically Signed) Final Date: 18 December 2023 09:40 S
== END 2023-12-18 07:25 | disposition home or self-care (01) ==
LOC: RAD 07:24
PROVIDERS: PCP Nurse Practitioner Family; Visit Provider Internal Medicine Cardiovascular Disease
DX: I71.40 Abdominal aortic aneurysm, without rupture, unspecified (principal)
CPT/HCPCS: 93978

== ENCOUNTER 2024-01-14 08:39 | Outpatient (CLI) | payer MEDICARE, OTHER, SELFPAY ==
[2024-01-14 08:56] VITALS: BMI 21.1
--- NOTE | 2024-01-14 08:59 | ECG_ITS ---
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 Interpretive Statements Lung unchanged pre/post procedure; Intraprocedure shortess of breath; Symptoms resoled by discharge PROCEDURE: At the baseline, the EKG revealed normal sinus rhythm with a poor R wave progression.. The baseline heart was 103 bpm with a blood pressue of 153/86 mm of Hg Lexiscan was infused over a period of 20 seconds. A total of 0.4 milligrams of Lexiscan was infused. The stress phase was continued for a total of 5 minutes. Heart rate at the end of the stress phase was 114 bpm with a blood pressure 172/84 mm of Hg. The EKG at the peak infusion revealed no significant changes. Sestamibi was injected 20 seconds after the Lexiscan infusion. Heart rate at the end of the recovery phase was 118 bpm with a blood pressure of 145/82 mm of Hg. CONCLUSION: 1. No significant EKG changes with the LexiScan infusion 2. No LexiScan induced chest pain or cardiac arrhythmia 3. Normal blood pressure and heart rate response 4. Sestamibi/sestamibi perfusion scan pending; see separate report. Electronically Signed On 01-14-2024 19:51:47 RECREATION COUNSELOR by Kyler Redman M.D. [email or web address]
--- NOTE | 2024-01-14 09:00 | NMCV_ITS ---
NM kathy perf SPECT r/s* [id number] Adrianne Najera Age: 78 Gender: F : 1945 Exam Date: 01/14/2024 09:46 Ordering Phys: Kyler Redman MD ([email or web address]) Technologist: TIMOTHY oRd Exam Location: [facility] Indications: cp STRESS TEST [facility] IMAGE PROTOCOL Rest/Stress 1 Lexiscan Day Radiopharmaceutical Dose (mCi) Administration Site Administered by Rest: Tc-99m 10.5 IV TIMOTHY Rod Sestamibi Stress:Tc-99m 32.6 IV TIMOTHY Oleary Sestamibi Rest: 14-Jan-2024 60 Discovery 630 Stress: 14-Jan-2024 30 Discovery 630 0.4mg Lexiscan. Supine position only as patient was unable to lay prone. SPECT RESULTS Technical Quality: Good Raw Data Analysis: Normal Image Corrections: No attenuation or motion correction applied Summed Stress Score: 2 Summed Rest Score: 6 Summed Difference Score: 0 PERFUSION FINDINGS Slightly decreased tracer uptake was noted in the anterior wall and apical regions. No significant reversibility was noted in these regions. FUNCTIONAL RESULTS (calculated via Gated SPECT) Stress Image LV EF (%): 81 Stress EDV (mL):42 TID: 0.83 Stress ESV (mL):8 FUNCTIONAL FINDINGS: Segmental wall motion analysis revealing no gross wall motion abnormalities IMPRESSIONS 1. Myocardial perfusion imaging revealing areas of mildly decreased persistent tracer uptake in the anterior wall and apical regions suggesting myocardial scarring versus attenuation artifact, 2. Normal LV ejection fraction of 81%. 3. LV wall motion analysis revealing no gross wall motion abnormalities. 4. Normal LV volume No similar previous studies are available for comparison. Low probability for coronary ischemia, based on the above findings Dr Kyler Redman MD [facility] (Electronically Signed) Final Date: 14 January 2024 18:00 S
[2024-01-14] MEDS: regadenoson 0.4 Mg/5 ml Syringe IVP (10:49)
[2024-01-14] MEDS: aminophylline 25 mg/mL SDV 20 mL IVP (10:59)
[2024-01-14 11:11] VITALS: BP 153/65; PULSE 72
== END 2024-01-14 08:40 | disposition home or self-care (01) ==
LOC: CDL 08:40
PROVIDERS: PCP Nurse Practitioner Family; Visit Provider Internal Medicine Cardiovascular Disease
DX: R06.02 Shortness of breath (principal); R07.9 Chest pain, unspecified
CPT/HCPCS: 36415; 78452; 93017; 96374; 96375; A9500; J0280; J2785